=== PATIENT | male | born 1995 | race Caucasian/White ===

== ENCOUNTER 2018-01-28 17:41 | Emergency (ER) | payer BC, OTHER ==
[2018-01-28] MEDS ORDERED: Ibuprofen 800 MG TAB ONE (18:14)
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
== END 2018-01-28 19:37 | disposition home or self-care (01) ==
LOC: ERS 17:41
DX: S01.512A Laceration without foreign body of oral cavity, initial encounter (principal); S80.01XA Contusion of right knee, initial encounter; R22.0 Localized swelling, mass and lump, head; F41.9 Anxiety disorder, unspecified; F17.210 Nicotine dependence, cigarettes, uncomplicated; V49.9XXA Car occupant (driver) (passenger) injured in unspecified traffic accident, initial encounter
CPT/HCPCS: 70486